=== PATIENT | male | born 1950 | race Caucasian/White ===

== ENCOUNTER 2021-11-26 20:40 | Emergency (ER) | payer MEDICARE ==
[~2021-11-26] VITALS: Ht 175.3 cm; Wt 88.0 kg
[2021-11-27 00:54] LABS: BASOPHILS % 0.5 % (0.0-2.0); EOSINOPHILS % 1.1 % (0.0-5.0); HEMATOCRIT. 44.2 % (42.0-52.0); HEMOGLOBIN. 15.4 g/dL (14.0-18.0); LYMPHOCYTES % 21.1 % (20.0-50.0); MEAN CORPUSCULAR HEMOGLOBIN 32.9 pg (28.0-32.0); MEAN CORPUSCULAR VOLUME 94.2 fL (80.0-94.0); MEAN PLATELET VOLUME 10.2 fl (7.4-10.4); MONOCYTES % 8.8 % (2.0-8.0); NEUTROPHILS % 68.5 % (40.0-76.0); PLATELET 190 x1000/uL (130-400); RED BLOOD CELL COUNT 4.69 mill/uL (4.7-6.1); RED CELL DISTRIBUTION WIDTH 13.5 % (11.6-14.6)
[2021-11-27 01:00] LABS: CHLORIDE 110 mEq/L (98-107)
[2021-11-27 04:26] VITALS: BP 130/68
== END 2021-11-27 04:27 | disposition home or self-care (01) ==
LOC: ER 20:40
DX: B34.9 Viral infection, unspecified (principal); E78.00 Pure hypercholesterolemia, unspecified; I10 Essential (primary) hypertension
CPT/HCPCS: 36415; 71045; 72128; 72131; 80053; 85025; 99285